=== PATIENT | male | born 1970 | race Asian ===

== ENCOUNTER 2019-05-15 12:36 | Emergency (ER) | payer BC ==
[~2019-05-15] VITALS: Ht 175.3 cm; Wt 79.8 kg
[2019-05-15 12:38] VITALS: BP 179/109
--- NOTE | 2019-05-15 12:48 | NUR ---
PT BIBA BLS TO ER BED 03
--- NOTE | 2019-05-15 13:05 | NUR ---
LAB AT BEDSIDE.
[2019-05-15 13:21] LABS: BASOPHILS % (AUTO) 0.5 % (0.0-2.0); EOSINOPHILS # (AUTO) 0.1 K/uL (0-0.4); EOSINOPHILS % (AUTO) 1.1 % (0.0-4.0); HEMOGLOBIN 16.3 g/dL (12.0-18.0); LYMPHOCYTES # (AUTO) 1.2 K/uL (2.0-11.5); LYMPHOCYTES % (AUTO) 12.5 % (20.5-51.1); MEAN CORPUSCULAR HEMOGLOBIN 31 pg (27-31); MEAN CORPUSCULAR HGB CONC 35 g/dL (33-37); MEAN CORPUSCULAR VOLUME 88.5 fL (80-94); MONOCYTES # (AUTO) 0.5 K/uL (0.8-1.0); NEUTROPHILS # (AUTO) 7.9 K/uL (1.8-7.7); NEUTROPHILS % (AUTO) 80.9 % (42.2-75.2); PLATELET COUNT (AUTO) 226 K/uL (140-450); RED BLOOD CELL COUNT(AUTO) 5.31 MIL/uL (4.20-6.10); RED CELL DISTRIBUTION WIDTH 12.3 % (11.6-13.7); WHITE BLOOD COUNT (AUTO) 9.8 K/uL (4.8-10.8)
[2019-05-15 13:30] LABS: BILIRUBIN,URINE NEGATIVE (NEGATIVE); BLOOD, URINE 3+ (NEGATIVE); COLOR,URINE YELLOW (YELLOW); LEUKOCYTE ESTERASE ,URINE TRACE (NEGATIVE); NITRITE, URINE NEGATIVE (NEGATIVE); PH,URINE 6.5 (5.0-9.0); UGLUCOSE NEGATIVE (NEGATIVE)
[2019-05-15] MEDS ORDERED: KETOROLAC 15 MG/ML VIAL IVP ONE (13:30)
--- NOTE | 2019-05-15 13:30 | NUR ---
48 Y/O BIBA FROM URGENT CARE. PT C/O 09/20 RLQ ABD PAIN SINCE 10AM THIS MORNING. PT CO N/V/D SINCE LAST NIGHT. DENIES FEVER. PT REPORTS PAIN RADIATES TO R TESTICLE, DENIES DYSURIA, URINARY FREQUENCY,OR PENILE DISCHARGE. ABDOMEN IS SOFT, NON TENDER. PT A & O X 4, LUNGS CLEAR UPON AUSCULTATION. DENIES PMH NKDA RX- DENIES
[2019-05-15 13:36] LABS: ALBUMIN 4.5 g/dL (3.4-5.0); CARBON DIOXIDE 27.4 mmol/L (21-32); CREATININE 1.2 mg/dL (0.6-1.3); POTASSIUM 3.4 mmol/L (3.5-5.1)
[2019-05-15 13:45] LABS: RBC,URINE TOO NUMEROUS TO COUN /HPF (0-5)
--- NOTE | 2019-05-15 13:45 | NUR ---
Mayra rivero in [facility] - 05/15/19 at 1346 by [facility] pt ambulated to bathroom with , steady gate.
[2019-05-15 13:46] LABS: WBC,URINE 0-5 /HPF (0-5)
--- NOTE | 2019-05-15 13:46 | NUR ---
pt ambulated to bathroom with , steady gait.
[2019-05-15 13:47] LABS: URINE AMORPHOUS URATE 3+ /HPF (None Seen)
[2019-05-15 13:48] LABS: APPEARANCE,URINE HAZY (CLEAR)
--- NOTE | 2019-05-15 14:05 | NUR ---
Mayra rivero in [facility] - 05/15/19 at 1412 by ANGIE PT TAKEN TO CT
--- NOTE | 2019-05-15 14:11 | NUR ---
PT TAKEN TO CT VIA WC
[2019-05-15 14:22] LABS: PROTHROMBIN TIME 9.8 secs (10.8-13.4)
[2019-05-15 15:38] VITALS: BP 126/86
--- NOTE | 2019-05-15 15:39 | NUR ---
Patient discharged with v/s stable. Written and verbal after care instructions given and explained. Patient alert, oriented and verbalized understanding of instructions. Ambulatory with steady gait. All questions addressed prior to discharge. ID band removed. Patient advised to follow up with PMD. Rx of FLOMAX, NORCO, AND IBUPROFEN given. Patient educated on indication of medication including possible reaction and side effects. Opportunity to ask questions provided and answered.
== END 2019-05-15 15:39 | disposition home or self-care (01) ==
LOC: MED 12:36
DX: N20.0 Calculus of kidney (principal)
CPT/HCPCS: 36415; 74177; 80053; 81001; 82150; 83690; 85025; 85610; 96374; 99284; J1885; Q9967